=== PATIENT | female | born 1940 | race Caucasian/White ===

== ENCOUNTER → 2017-01-10 | Outpatient (CLI) | payer MEDICARE ==
[~2017-01-10] MED LIST: LEVO50TA4 PO; LORTA5 PO; RIVA10 PO
== END ==
LOC: ELAB 09:52
PROVIDERS: ATTEND Family Medicine
DX: E03.9 Hypothyroidism, unspecified (principal); E78.5 Hyperlipidemia, unspecified; R53.83 Other fatigue; D03.9 Melanoma in situ, unspecified; M85.9 Disorder of bone density and structure, unspecified; M15.0 Primary generalized (osteo)arthritis
CPT/HCPCS: 36415; 84443

== ENCOUNTER → 2017-02-26 | Outpatient (CLI) | payer MEDICARE ==
[2017-02-26 12:07] LABS: HEMATOCRIT 41.8 % (35.0-46.0); MEAN CELL VOLUME 89.6 FL (80.0-100.0); MEAN CORPUSCULAR HEMOGLOBIN 29.5 PG (27.0-34.0); MEAN CORPUSCULAR HGB CONC 32.9 % (32.0-36.0); PLATELET COUNT 242 TH/MM3 (150-450); RED BLOOD COUNT 4.67 MIL/MM3 (4.00-5.30); RED CELL DISTRIBUTION WIDTH 13.9 % (11.6-17.2); REVIEW FLAG FINAL; WHITE BLOOD COUNT 5.4 TH/MM3 (4.0-11.0)
[2017-02-26 12:50] LABS: ALT (GPT) 25 U/L (10-53); ANION GAP 7 MEQ/L (5-15); AST (GOT) 21 U/L (15-37); BICARBONATE 27.9 MEQ/L (21.0-32.0); BLOOD UREA NITROGEN 12 MG/DL (7-18); CHLORIDE 107 MEQ/L (98-107); GLOMERULAR FILTRATION RATE 83 ML/MIN (>89); GLUCOSE,FASTING 88 MG/DL (74-99); SODIUM (NA) 142 MEQ/L (136-145)
[2017-02-26 12:59] LABS: ALKALINE PHOSPHATASE 70 U/L (45-117); HDL CHOLESTEROL 57.3 MG/DL (40.0-60.0); LDL CHOLESTEROL 163 MG/DL (0-99); TOTAL BILIRUBIN ADULT 0.6 MG/DL (0.2-1.0)
== END ==
LOC: ELAB 08:22
PROVIDERS: ATTEND Family Medicine
DX: E03.9 Hypothyroidism, unspecified (principal); E78.5 Hyperlipidemia, unspecified; R53.83 Other fatigue; D03.9 Melanoma in situ, unspecified; M85.9 Disorder of bone density and structure, unspecified; M15.0 Primary generalized (osteo)arthritis
CPT/HCPCS: 36415; 80053; 80061; 84443; 85027

== ENCOUNTER → 2017-07-18 | Outpatient (CLI) | payer MEDICARE ==
[2017-07-18 12:02] LABS: HEMATOCRIT 42.4 % (35.0-46.0); MEAN CELL VOLUME 91.5 FL (80.0-100.0); MEAN CORPUSCULAR HEMOGLOBIN 29.9 PG (27.0-34.0); MEAN CORPUSCULAR HGB CONC 32.6 % (32.0-36.0); PLATELET COUNT 218 TH/MM3 (150-450); RED BLOOD COUNT 4.63 MIL/MM3 (4.00-5.30); RED CELL DISTRIBUTION WIDTH 13.6 % (11.6-17.2); REVIEW FLAG FINAL
[2017-07-18 12:22] LABS: ALT (GPT) 26 U/L (10-53); ANION GAP 8 MEQ/L (5-15); AST (GOT) 19 U/L (15-37); BICARBONATE 24.7 MEQ/L (21.0-32.0); BLOOD UREA NITROGEN 10 MG/DL (7-18); CHLORIDE 106 MEQ/L (98-107); GLOMERULAR FILTRATION RATE 79 ML/MIN (>89); GLUCOSE,FASTING 87 MG/DL (74-99); POTASSIUM 4.4 MEQ/L (3.5-5.1); SODIUM (NA) 139 MEQ/L (136-145)
[2017-07-18 12:31] LABS: ALKALINE PHOSPHATASE 80 U/L (45-117); FREE T4 1.64 NG/DL (0.76-1.46); HDL CHOLESTEROL 45.4 MG/DL (40.0-60.0); LDL CHOLESTEROL 121 MG/DL (0-99); TOTAL BILIRUBIN ADULT 0.3 MG/DL (0.2-1.0)
== END ==
LOC: ELAB 09:00
PROVIDERS: ATTEND Family Medicine
DX: E03.9 Hypothyroidism, unspecified (principal); E78.5 Hyperlipidemia, unspecified; R53.83 Other fatigue; D03.9 Melanoma in situ, unspecified; M85.9 Disorder of bone density and structure, unspecified; M15.0 Primary generalized (osteo)arthritis
CPT/HCPCS: 36415; 80053; 80061; 84439; 84443; 85027

== ENCOUNTER → 2017-11-19 | Outpatient (CLI) | payer MEDICARE ==
[2017-11-19 09:42] LABS: HEMATOCRIT 43.9 % (35.0-46.0); HEMOGLOBIN 14.6 GM/DL (11.6-15.3); MEAN CELL VOLUME 91.4 FL (80.0-100.0); MEAN CORPUSCULAR HEMOGLOBIN 30.4 PG (27.0-34.0); MEAN CORPUSCULAR HGB CONC 33.2 % (32.0-36.0); MEAN PLATELET VOLUME 8.6 FL (7.0-11.0); PLATELET COUNT 239 TH/MM3 (150-450); RED CELL DISTRIBUTION WIDTH 13.9 % (11.6-17.2); WHITE BLOOD COUNT 5.8 TH/MM3 (4.0-11.0)
[2017-11-19 10:12] LABS: ALBUMIN 3.7 GM/DL (3.4-5.0); AST (GOT) 26 U/L (15-37); BLOOD UREA NITROGEN 11 MG/DL (7-18); CALCIUM 8.6 MG/DL (8.5-10.1); CHLORIDE 107 MEQ/L (98-107); CHOLESTEROL 266 MG/DL (120-200); CREATININE 0.78 MG/DL (0.50-1.00); GLOMERULAR FILTRATION RATE 72 ML/MIN (>89); GLUCOSE,FASTING 92 MG/DL (74-99); SODIUM (NA) 140 MEQ/L (136-145); TRIGLYCERIDES 108 MG/DL (42-150)
[2017-11-19 10:21] LABS: ALKALINE PHOSPHATASE 76 U/L (45-117); ALT (GPT) 30 U/L (10-53); FREE T4 1.28 NG/DL (0.76-1.46); HDL CHOLESTEROL 61.8 MG/DL (40.0-60.0); LDL CHOLESTEROL 183 MG/DL (0-99); TOTAL BILIRUBIN ADULT 0.3 MG/DL (0.2-1.0); TOTAL PROTEIN 7.5 GM/DL (6.4-8.2)
== END ==
LOC: ELAB 07:54
PROVIDERS: ATTEND Family Medicine
DX: E03.9 Hypothyroidism, unspecified (principal); E78.5 Hyperlipidemia, unspecified; R53.83 Other fatigue; D03.9 Melanoma in situ, unspecified; M85.9 Disorder of bone density and structure, unspecified; M15.0 Primary generalized (osteo)arthritis
CPT/HCPCS: 36415; 80053; 80061; 84439; 84443; 85027

== ENCOUNTER → 2018-04-03 | Outpatient (CLI) | payer MEDICARE ==
[2018-04-03 12:46] LABS: HEMATOCRIT 43.5 % (35.0-46.0); HEMOGLOBIN 14.5 GM/DL (11.6-15.3); MEAN CELL VOLUME 90.8 FL (80.0-100.0); MEAN CORPUSCULAR HEMOGLOBIN 30.2 PG (27.0-34.0); MEAN CORPUSCULAR HGB CONC 33.3 % (32.0-36.0); MEAN PLATELET VOLUME 9.1 FL (7.0-11.0); PLATELET COUNT 276 TH/MM3 (150-450); RED BLOOD COUNT 4.79 MIL/MM3 (4.00-5.30); RED CELL DISTRIBUTION WIDTH 13.6 % (11.6-17.2); WHITE BLOOD COUNT 6.1 TH/MM3 (4.0-11.0)
[2018-04-03 13:21] LABS: ALBUMIN 3.9 GM/DL (3.4-5.0); ALT (GPT) 24 U/L (10-53); AST (GOT) 22 U/L (15-37); BICARBONATE 27.3 MEQ/L (21.0-32.0); BLOOD UREA NITROGEN 16 MG/DL (7-18); CALCIUM 8.9 MG/DL (8.5-10.1); CHLORIDE 107 MEQ/L (98-107); CHOLESTEROL 275 MG/DL (120-200); CREATININE 0.79 MG/DL (0.50-1.00); GLOMERULAR FILTRATION RATE 71 ML/MIN (>89); GLUCOSE,FASTING 91 MG/DL (74-99); SODIUM (NA) 142 MEQ/L (136-145); TRIGLYCERIDES 198 MG/DL (42-150)
[2018-04-03 13:31] LABS: ALKALINE PHOSPHATASE 73 U/L (45-117); CHOLESTEROL/ HDL RATIO 5.39 RATIO; LDL CHOLESTEROL 184 MG/DL (0-99); TOTAL BILIRUBIN ADULT 0.4 MG/DL (0.2-1.0); TOTAL PROTEIN 7.9 GM/DL (6.4-8.2)
== END ==
LOC: ELAB 08:40
PROVIDERS: ATTEND Family Medicine
DX: C50.912 Malignant neoplasm of unspecified site of left female breast (principal); E03.9 Hypothyroidism, unspecified; E78.5 Hyperlipidemia, unspecified; M89.9 Disorder of bone, unspecified; Z85.3 Personal history of malignant neoplasm of breast
CPT/HCPCS: 36415; 80053; 80061; 84443; 85027